=== PATIENT | male | born 1960 | race Caucasian/White ===

== ENCOUNTER 2016-09-17 12:22 | Emergency (ER) | payer BC ==
[2016-09-17] MEDS ORDERED: HYDROmorphone 1 MG/ML 1 ML SYRINGE IM STA ×2 (12:53→13:44)
--- NOTE | 2016-09-17 12:56 | ED ---
General Adult HPI - General Chief complaint: Neck Pain/Injury Stated complaint: Neck/Shoulder Pain Time Seen by Provider: 09/17/16 12:45 Source: patient, family, RN notes reviewed Mode of arrival: ambulatory Limitations: no limitations - History of Present Illness Initial comments: Patient is a pleasant 56-year-old male presenting to the emergency Department with neck and left arm pain. Onset was a week or 2 ago. Patient has discomfort left neck that radiates to the shoulder and down the arm. Patient does have burning sensation. Patient had difficulty lifting a glass earlier however admits it was secondary to pain. No history of chronic neck problems. Patient did see his doctor a couple of days ago. Patient was prescribed Tylenol 3 and Flexeril without improvement of symptoms. Patient did have x- rays that were interpreted by his doctor as no acute process. Patient is scheduled to have MRI. - Related Data Home Medications Medication Instructions Recorded Confirmed Acetaminophen-Codeine 300-30mg 1 tab PO Q6H PRN 09/17/16 09/17/16 [Tylenol #3] Atorvastatin [Lipitor] 10 mg PO HS 09/17/16 09/17/16 Cyclobenzaprine [Flexeril] 5 mg PO TID PRN 09/17/16 09/17/16 Loratadine [Claritin] 10 mg PO DAILY 09/17/16 09/17/16 Timolol 0.5% Ophth Soln [Timoptic 1 drop BOTH EYES DAILY 09/17/16 09/17/16 0.5% Ophth Soln] Previous Rx's Medication Instructions Recorded Hydrocodone/Acetaminophen [[place] 2 each PO Q6HR PRN #20 tab 09/17/16 5-325] Orphenadrine [Norflex] 100 mg PO Q12H #12 tablet.er 09/17/16 Allergies Allergy/AdvReac Type Severity Reaction Status Date / Time aspirin Allergy Anaphylaxis Verified 09/17/16 13:18 ibuprofen [From Motrin] Allergy Anaphylaxis Verified 09/17/16 13:18 Review of Systems ROS Statement: Those systems with pertinent positive or pertinent negative responses have been documented in the HPI. ROS Other: All systems not noted in ROS Statement are negative. Constitutional: Denies: fever Eyes: Denies: eye pain ENT: Denies: ear pain Respiratory: Denies: cough Cardiovascular: Denies: chest pain Endocrine: Denies: fatigue Gastrointestinal: Denies: abdominal pain Genitourinary: Denies: dysuria Musculoskeletal: Reports: other (Neck pain) Skin: Denies: rash Neurological: Denies: headache Past Medical History Past Medical History: Cancer, Hyperlipidemia, Hypertension, Osteoarthritis (OA) Additional Past Medical History / Comment(s): GLAUCOMA,PROSTATE, THROMBOCYTOPENIA History of Any Multi-Drug Resistant Organisms: None Reported Past Surgical History: Orthopedic Surgery Past Psychological History: No Psychological Hx Reported Smoking Status: Former smoker Past Alcohol Use History: Rare Past Drug Use History: None Reported General Exam Limitations: no limitations General appearance: alert, in no apparent distress Head exam: Present: atraumatic Eye exam: Present: normal appearance, PERRL ENT exam: Present: normal oropharynx Neck exam: Present: tenderness (Tenderness left lateral lower neck posteriorly.) Respiratory exam: Present: normal lung sounds bilaterally Cardiovascular Exam: Present: regular rate, normal rhythm Expanded Peripheral pulses: 2+: Radial (L) GI/Abdominal exam: Present: soft. Absent: tenderness Extremities exam: Present: normal inspection Neurological exam: Present: alert, CN II-XII intact Expanded Sensory exam: Upper Extremity Light Touch: Normal Motor strength exam: RUE: 5, LUE: 5 (No weakness with change management lead or extension or flexion of an outstretched arm.) Eye Response: (4) open spontaneously Motor Response: (6) obeys commands Verbal Response: (5) oriented Psychiatric exam: Present: normal affect, normal mood Skin exam: Absent: rash Course Vital Signs 09/17/16 09/17/16 09/17/16 12:25 13:44 14:35 Temperature 98.0 F 97.5 F L 97.7 F Pulse Rate 68 67 60 Respiratory 20 18 18 Rate Blood Pressure 168/88 171/77 185/93 O2 Sat by Pulse 98 95 93 L Oximetry Medical Decision Making - Medical Decision Making Patient reexamined and states discomfort is tolerable at this time. Patient is comfortable with discharge home. Patient will be provided stronger pain medication and recommended close follow-up. Patient is advised to return if symptoms worsen or weakness or loss of sensation. Patient was earlier offered x -rays however states they are not necessary because his doctor just did x-rays. Disposition Clinical Impression: Cervical radiculopathy Disposition: HOME SELF-CARE Condition: Stable Instructions: Cervical Radiculopathy (ED) Additional Instructions: Please follow-up with primary care physician and orthopedics on Sunday. Please have your MRI scheduled. Return for weakness or loss of sensation, uncontrolled pain, worsening symptoms or other concerns. Prescriptions: Hydrocodone/Acetaminophen [[place] 5-325] 2 each PO Q6HR PRN #20 tab PRN Reason: Pain Orphenadrine [Norflex] 100 mg PO Q12H #12 tablet.er Referrals: Jair Hoyt DO [Primary Care Provider] - 1-2 days
[2016-09-17 13:45] VITALS: RESP 18
[2016-09-17 14:36] VITALS: PULSE 60
[2016-09-17 15:03] VITALS: BP 184/84; TEMP 98.6
== END 2016-09-17 15:10 | disposition home or self-care (01) ==
LOC: EC 12:22
DX: M54.12 Radiculopathy, cervical region (principal); E78.5 Hyperlipidemia, unspecified; I10 Essential (primary) hypertension; M19.90 Unspecified osteoarthritis, unspecified site; Z87.891 Personal history of nicotine dependence; Z79.899 Other long term (current) drug therapy; Z88.6 Allergy status to analgesic agent; Z85.9 Personal history of malignant neoplasm, unspecified
CPT/HCPCS: 99283; 96372 ×2; J1170

== ENCOUNTER 2017-04-06 14:27 | Emergency (ER) | payer BC ==
[2017-04-06 14:39] VITALS: TEMP 98.5
[2017-04-06] MEDS ORDERED: HYDROmorphone 1 MG/ML 1 ML SYRINGE IVP STA (15:41)
[2017-04-06] MEDS ORDERED: ONDANSETRON 4 MG/2 ML VIAL IVP STA (15:41)
[2017-04-06] MEDS ORDERED: SODIUM CHLORIDE 0.9% 1,000 ML IV STA (15:41)
--- NOTE | 2017-04-06 15:44 | ED ---
General Adult HPI - General Chief complaint: Headache Stated complaint: Shooting pains in head Time Seen by Provider: 04/06/17 15:16 Source: patient, RN notes reviewed Mode of arrival: ambulatory Limitations: no limitations - History of Present Illness Initial comments: Patient's a 57-year-old male who presents emergency room today with a chief complaint of a headache located to the right side of his head that started approximately 12 hours ago. He does admit that he was driving when this headache started. Patient states it as a "sharp" type pain that comes and goes. He states that has a slight dull ache 1 cm. States it happens every 2-5 minutes and just last for a few seconds at a time. Patient states it is a sharp 10/10 type pain. Patient denies any other complaints or symptoms. Denies ever having similar symptoms in the past. Patient denies any recent fever , chills, shortness of breath, chest pain, back pain, abdominal pain, nausea or vomiting, numbness or tingling, dysuria or hematuria, constipation or diarrhea, visual changes, or any other complaints. - Related Data Home Medications Medication Instructions Recorded Confirmed Atorvastatin [Lipitor] 10 mg PO DAILY 09/17/16 04/06/17 Timolol 0.5% Ophth Soln [Timoptic 1 drop BOTH EYES DAILY 09/17/16 04/06/17 0.5% Ophth Soln] Gabapentin [Neurontin] 300 mg PO TID PRN 04/06/17 04/06/17 Previous Rx's Medication Instructions Recorded Butalb/Acetaminophen/Caffeine 1 - 2 each PO Q4H #20 tab 04/06/17 [Fioricet 50-325-40] Hydrocodone/Acetaminophen [[place] 1 each PO Q6HR PRN #15 tab 04/06/17 5-325] Allergies Allergy/AdvReac Type Severity Reaction Status Date / Time NSAIDS (Non-Steroidal Allergy Anaphylaxis Verified 04/06/17 15:54 Anti-Inflamma Review of Systems ROS Statement: Those systems with pertinent positive or pertinent negative responses have been documented in the HPI. ROS Other: All systems not noted in ROS Statement are negative. Past Medical History Past Medical History: Cancer, Hyperlipidemia, Hypertension, Osteoarthritis (OA) Additional Past Medical History / Comment(s): GLAUCOMA,PROSTATE, THROMBOCYTOPENIA History of Any Multi-Drug Resistant Organisms: None Reported Past Surgical History: Hernia Repair, Orthopedic Surgery, Prostate Surgery Additional Past Surgical History / Comment(s): carpal tunnel Past Psychological History: No Psychological Hx Reported Smoking Status: Former smoker Past Alcohol Use History: Rare Past Drug Use History: None Reported General Exam - General Exam Comments Initial Comments: General: The patient is awake and alert, in no distress, and does not appear acutely ill. Eye: Pupils are equal, round and reactive to light, extra-ocular movements are intact. No nystagmus. There is normal conjunctiva bilaterally. No signs of icterus. Ears, nose, mouth and throat: There are moist mucous membranes and no oral lesions. No tenderness over the right side. No rash. No swelling. Neck: The neck is supple, there is no tenderness or JVD. Cardiovascular: There is a regular rate and rhythm. No murmur, rub or gallop is appreciated. Respiratory: Lungs are clear to auscultation, respirations are non-labored, breath sounds are equal. No wheezes, stridor, rales, or rhonchi. Gastrointestinal: Soft, non-distended, non-tender abdomen without masses or organomegaly noted. There is no rebound or guarding present. No CVA tenderness. Bowel sounds are unremarkable. Musculoskeletal: Normal ROM, no tenderness. Strength 5/5. Sensation intact. Pulses equal bilaterally 2+. Neurological: A&O x 3. CN II-XII intact, There are no obvious motor or sensory deficits. Coordination appears grossly intact. Speech is normal. Skin: Skin is warm and dry and no rashes or lesions are noted. Psychiatric: Cooperative, appropriate mood & affect, normal judgment. Limitations: no limitations Course Vital Signs 04/06/17 04/06/17 14:36 16:48 Temperature 98.5 F Pulse Rate 60 63 Respiratory 20 18 Rate Blood Pressure 159/95 150/81 O2 Sat by Pulse 96 97 Oximetry Medical Decision Making - Medical Decision Making Case discussed in detail with attending physician Dr. Miranda. Patient reexamined at this time shows no signs of distress resting comfortably. Patient resting comfortably. Does admit to improvement after medication given here in the emergency room. Patient's CT and CTA are negative for any acute abnormalities. Patient will be discharged home advised follow-up urologist over the next 2 days. He will be given pain medication to use for her symptoms. Advised to return if any symptoms increase worsen or for any other concerns. - Lab Data Result diagrams: 04/06/17 15:50 04/06/17 15:50 Lab Results 04/06/17 04/06/17 04/06/17 Range/Units 15:50 15:50 15:50 WBC 7.3 (3.8-10.6) k/uL RBC 5.18 (4.30-5.90) m/uL Hgb 16.5 (13.0-17.5) gm/dL Hct 48.0 (39.0-53.0) % MCV 92.6 (80.0-100.0) fL MCH 31.8 (25.0-35.0) pg MCHC 34.4 (31.0-37.0) g/dL RDW 13.9 (11.5-15.5) % Plt Count 226 (150-450) k/uL Neutrophils % 53 % Lymphocytes % 33 % Monocytes % 8 % Eosinophils % 3 % Basophils % 1 % Neutrophils # 3.9 (1.3-7.7) k/uL Lymphocytes # 2.5 (1.0-4.8) k/uL Monocytes # 0.6 (0-1.0) k/uL Eosinophils # 0.2 (0-0.7) k/uL Basophils # 0.1 (0-0.2) k/uL ESR 5 (0-15) mm/hr Sodium 140 (137-145) mmol/L Potassium 4.3 (3.5-5.1) mmol/L Chloride 110 H (98-107) mmol/L Carbon Dioxide 22 (22-30) mmol/L Anion Gap 8 mmol/L BUN 11 (9-20) mg/dL Creatinine 0.80 (0.66-1.25) mg/dL Est GFR (MDRD) Af Amer >60 (>60 ml/min/1.73 sqM) Est GFR (MDRD) Non-Af >60 (>60 ml/min/1.73 sqM) Glucose 90 (74-99) mg/dL Calcium 8.8 (8.4-10.2) mg/dL Total Bilirubin 1.0 (0.2-1.3) mg/dL AST 28 (17-59) U/L ALT 56 (21-72) U/L Alkaline Phosphatase 117 (38-126) U/L Total Protein 6.6 (6.3-8.2) g/dL Albumin 3.8 (3.5-5.0) g/dL Disposition Clinical Impression: Headache, acute Disposition: HOME SELF-CARE Condition: Good Instructions: Acute Headache (ED) Additional Instructions: Please use medication as discussed. Please follow-up with neurology/family doctor in the next 2 days. Please return to emergency room if the symptoms increase or worsen or for any other concerns. Prescriptions: Butalb/Acetaminophen/Caffeine [Fioricet 50-325-40] 1 - 2 each PO Q4H #20 tab Hydrocodone/Acetaminophen [[place] 5-325] 1 each PO Q6HR PRN #15 tab PRN Reason: Pain Referrals: Jair Hoyt DO [Primary Care Provider] - 1-2 days Ingris Lewis MD [STAFF PHYSICIAN] - 1-2 days Time of Disposition: 18:30
[2017-04-06 16:03] LABS: Basophils # (A) 0.1 k/uL (0-0.2); Basophils % (A) 1 %; CH 32.4; CHCM 35.1; Eosinophils # (A) 0.2 k/uL (0-0.7); Eosinophils % (A) 3 %; HDW 2.57; HGB 16.5 gm/dL (13.0-17.5); Luc # (Auto) 0.14; Luc % (Auto) 2; Lymphocytes # (A) 2.5 k/uL (1.0-4.8); Lymphocytes % (A) 33 %; MCH 31.8 pg (25.0-35.0); MCHC 34.4 g/dL (31.0-37.0); MCV 92.6 fL (80.0-100.0); Mean Platelet Volume 8.4; Monocytes # (A) 0.6 k/uL (0-1.0); Monocytes % (A) 8 %; Neutrophils # (A) 3.9 k/uL (1.3-7.7); Neutrophils % (A) 53 %; RBC 5.18 m/uL (4.30-5.90); RDW 13.9 % (11.5-15.5); WBC 7.3 k/uL (3.8-10.6); WBC (Perox) 7.39
[2017-04-06 16:13] LABS: ALT 56 U/L (21-72); AST 28 U/L (17-59); Alkaline Phosphatase 117 U/L (38-126); Anion Gap 8 mmol/L; Blood Urea Nitrogen 11 mg/dL (9-20); Calcium 8.8 mg/dL (8.4-10.2); Carbon Dioxide 22 mmol/L (22-30); Chloride 110 mmol/L (98-107); Glucose 90 mg/dL (74-99); Non-African American GFR(MDRD) >60 (>60 ml/min/1.73 sqM); Potassium 4.3 mmol/L (3.5-5.1); Sodium 140 mmol/L (137-145); Total Protein 6.6 g/dL (6.3-8.2)
--- NOTE | 2017-04-06 16:42 | CT ---
EXAMINATION TYPE: CT brain wo con DATE OF EXAM: 04/06/2017 COMPARISON: NONE HISTORY: [place]HT[place] today. CT DLP: 1052.[address] of the head is obtained. The ventricles, basal cisterns and sulci overlying the conve xities are consistent with the patient's age. The calvarium is intact. Faint periventricular low att enuation noted which is nonspecific. No midline shift. Changes of mild chronic sinusitis noted. IMPRESSION: 1. No evidence of acute hemorrhage or mass effect. Nonspecific periventricular low attenuation. Corre late clinically. Microvascular white matter ischemia most likely etiology. If symptoms persist or the re is continued clinical concern for acute ischemia correlate with MRI.
[2017-04-06] MEDS ORDERED: RX INFO: IV CONTRAST WAS GIVEN 1 EACH MISC MISCELLANE PRN (17:06)
--- NOTE | 2017-04-06 18:05 | CT ---
EXAMINATION TYPE: CT angio head DATE OF EXAM: 04/06/2017 COMPARISON: NONE HISTORY: Headache and hypertension. CT DLP: 1327.00 mGycm Automated exposure control for dose reduction was used. CONTRAST: Performed with IV Contrast, patient injected with 100 mL of Omnipaque 350. FINDINGS: The anterior and posterior arterial circulation is well visualized and has normal appearance. The bartolo ous structures are unremarkable. There are no incidental vascular findings. The intra-axial and extra-axial compartment evaluations are negative. There are no incidental finding s. IMPRESSION: NO ACUTE PROCESS; NO FOCAL FINDINGS.
[2017-04-06 18:41] VITALS: BP 158/82; PULSE 52; RESP 16
== END 2017-04-06 18:41 | disposition home or self-care (01) ==
LOC: EC 14:27
DX: R51 Headache (principal); E78.5 Hyperlipidemia, unspecified; H40.9 Unspecified glaucoma; Z85.9 Personal history of malignant neoplasm, unspecified; Z87.891 Personal history of nicotine dependence; Z79.899 Other long term (current) drug therapy; Z88.6 Allergy status to analgesic agent
CPT/HCPCS: 36415; 80053; 85652; 85025; 70496; 70450; 99284; 96374; 96375; 96361; Q9967; J2405; J1170

== ENCOUNTER 2017-08-16 17:07 | Emergency (ER) | payer BC ==
[2017-08-16] MEDS ORDERED: RX INFO: IV CONTRAST WAS GIVEN 1 EACH MISC MISCELLANE PRN (17:31)
[2017-08-16] MEDS ORDERED: ONDANSETRON 4 MG/2 ML VIAL IVP STA (17:31)
[2017-08-16] MEDS ORDERED: HYDROmorphone 4 MG/ML 1 ML SYRINGE IVP STA (17:31)
[2017-08-16] MEDS ORDERED: SODIUM CHLORIDE 0.9% 1,000 ML IV STA (17:31)
--- NOTE | 2017-08-16 17:34 | ED ---
Abdominal Pain HPI - General Chief Complaint: Abdominal Pain Stated Complaint: Hernia Time Seen by Provider: 08/16/17 17:26 Source: patient, RN notes reviewed Mode of arrival: ambulatory Limitations: no limitations - History of Present Illness Initial Comments: 57-year-old male presents emergency Department chief complaint of abdominal pain , hernia. Patient's had a known hernia for several years states it started after he had prostate surgery. He states he had a robotic prostate surgery states that before and after. Patient denies any nausea vomiting diarrhea constipation. He states he is passing gas abnormal vomits. He does state that over the last 2 days had increased pain and noticed the redness today. Patient went saw his PCP who sent here for further evaluation. He's had no reported fevers or chills. - Related Data Home Medications Medication Instructions Recorded Confirmed Atorvastatin [Lipitor] 10 mg PO DAILY 09/17/16 08/16/17 Timolol 0.5% Ophth Soln [Timoptic 1 drop BOTH EYES DAILY 09/17/16 08/16/17 0.5% Ophth Soln] Gabapentin [Neurontin] 300 mg PO DAILY PRN 04/06/17 08/16/17 Magnesium 200 mg PO DAILY 08/16/17 08/16/17 Previous Rx's Medication Instructions Recorded HYDROcodone/APAP 7.5-325MG [[place] 1 tab PO Q6HR PRN #20 tab 08/16/17 7.5-325] Allergies Allergy/AdvReac Type Severity Reaction Status Date / Time NSAIDS (Non-Steroidal Allergy Anaphylaxis Verified 08/16/17 17:33 Anti-Inflamma Review of Systems ROS Statement: Those systems with pertinent positive or pertinent negative responses have been documented in the HPI. ROS Other: All systems not noted in ROS Statement are negative. Past Medical History Past Medical History: Cancer, Hyperlipidemia, Hypertension, Osteoarthritis (OA) Additional Past Medical History / Comment(s): GLAUCOMA,PROSTATE, THROMBOCYTOPENIA History of Any Multi-Drug Resistant Organisms: None Reported Past Surgical History: Hernia Repair, Orthopedic Surgery, Prostate Surgery Additional Past Surgical History / Comment(s): carpal tunnel Past Psychological History: No Psychological Hx Reported Smoking Status: Former smoker Past Alcohol Use History: Rare Past Drug Use History: None Reported General Exam Limitations: no limitations General appearance: alert, in no apparent distress Neck exam: Present: normal inspection, full ROM. Absent: tenderness, meningismus, lymphadenopathy Respiratory exam: Present: normal lung sounds bilaterally. Absent: respiratory distress, wheezes, rales, rhonchi, stridor Cardiovascular Exam: Present: regular rate, normal rhythm, normal heart sounds. Absent: systolic murmur, diastolic murmur, rubs, gallop, clicks GI/Abdominal exam: Present: soft, tenderness (Periumbilical umbilical tenderness ), normal bowel sounds, hernia (Umbilical hernia with noted erythema, unable to reduce at this time). Absent: distended, guarding, rebound, rigid Back exam: Absent: CVA tenderness (R), CVA tenderness (L) Skin exam: Present: warm, dry, intact, normal color. Absent: rash Course Vital Signs 08/16/17 08/16/17 17:16 19:13 Temperature 99.4 F Pulse Rate 77 60 Respiratory 16 18 Rate Blood Pressure 163/78 146/77 O2 Sat by Pulse 98 97 Oximetry Medical Decision Making - Medical Decision Making 57-year-old male presented for abdominal pain, hernia. Patient was evaluated by me and by Dr. Pride. We attempted to reduce the hernia which is unsuccessful. CT shows fat-containing hernia there is no loops of bowel. Case was discussed with Dr. Perez by Dr. Pride and Dr. Perez recommends patient to be discharged, given pain medication and follow-up in office. He does understand that this was not reduced here. - Lab Data Result diagrams: 08/16/17 17:43 08/16/17 17:43 Lab Results 08/16/17 08/16/17 08/16/17 Range/Units 17:43 17:43 17:43 WBC 8.4 (3.8-10.6) k/uL RBC 5.03 (4.30-5.90) m/uL Hgb 15.5 (13.0-17.5) gm/dL Hct 46.3 (39.0-53.0) % MCV 92.1 (80.0-100.0) fL MCH 30.8 (25.0-35.0) pg MCHC 33.4 (31.0-37.0) g/dL RDW 12.8 (11.5-15.5) % Plt Count 244 (150-450) k/uL Neutrophils % 65 % Lymphocytes % 26 % Monocytes % 5 % Eosinophils % 2 % Basophils % 1 % Neutrophils # 5.5 (1.3-7.7) k/uL Lymphocytes # 2.1 (1.0-4.8) k/uL Monocytes # 0.5 (0-1.0) k/uL Eosinophils # 0.2 (0-0.7) k/uL Basophils # 0.0 (0-0.2) k/uL PT (9.0-12.0) sec INR (<1.2) APTT (22.0-30.0) sec Sodium 141 (137-145) mmol/L Potassium 4.2 (3.5-5.1) mmol/L Chloride 109 H (98-107) mmol/L Carbon Dioxide 24 (22-30) mmol/L Anion Gap 8 mmol/L BUN 11 (9-20) mg/dL Creatinine 0.80 (0.66-1.25) mg/dL Est GFR (MDRD) Af Amer >60 (>60 ml/min/1.73 sqM) Est GFR (MDRD) Non-Af >60 (>60 ml/min/1.73 sqM) Glucose 97 (74-99) mg/dL Plasma Lactic Acid [place] 0.6 L (0.7-2.0) mmol/L Calcium 9.0 (8.4-10.2) mg/dL Total Bilirubin 0.6 (0.2-1.3) mg/dL AST 23 (17-59) U/L ALT 29 (21-72) U/L Alkaline Phosphatase 100 (38-126) U/L Total Protein 6.6 (6.3-8.2) g/dL Albumin 3.8 (3.5-5.0) g/dL Amylase 34 (30-110) U/L Lipase 82 (23-300) U/L Urine Color Urine Appearance (Clear) Urine pH (5.0-8.0) Ur Specific [place] (1.001-1.035) Urine Protein (Negative) Urine Glucose (UA) (Negative) Urine Ketones (Negative) Urine Blood (Negative) Urine Nitrite (Negative) Urine Bilirubin (Negative) Urine Urobilinogen (<2.0) mg/dL Ur Leukocyte Esterase (Negative) Amorphous Sediment (None) /hpf Urine Mucus (None) /hpf 08/16/17 08/16/17 Range/Units 17:43 18:00 WBC (3.8-10.6) k/uL RBC (4.30-5.90) m/uL Hgb (13.0-17.5) gm/dL Hct (39.0-53.0) % MCV (80.0-100.0) fL MCH (25.0-35.0) pg MCHC (31.0-37.0) g/dL RDW (11.5-15.5) % Plt Count (150-450) k/uL Neutrophils % % Lymphocytes % % Monocytes % % Eosinophils % % Basophils % % Neutrophils # (1.3-7.7) k/uL Lymphocytes # (1.0-4.8) k/uL Monocytes # (0-1.0) k/uL Eosinophils # (0-0.7) k/uL Basophils # (0-0.2) k/uL PT 10.1 (9.0-12.0) sec INR 1.0 (<1.2) APTT 24.4 (22.0-30.0) sec Sodium (137-145) mmol/L Potassium (3.5-5.1) mmol/L Chloride (98-107) mmol/L Carbon Dioxide (22-30) mmol/L Anion Gap mmol/L BUN (9-20) mg/dL Creatinine (0.66-1.25) mg/dL Est GFR (MDRD) Af Amer (>60 ml/min/1.73 sqM) Est GFR (MDRD) Non-Af (>60 ml/min/1.73 sqM) Glucose (74-99) mg/dL Plasma Lactic Acid [place] (0.7-2.0) mmol/L Calcium (8.4-10.2) mg/dL Total Bilirubin (0.2-1.3) mg/dL AST (17-59) U/L ALT (21-72) U/L Alkaline Phosphatase (38-126) U/L Total Protein (6.3-8.2) g/dL Albumin (3.5-5.0) g/dL Amylase (30-110) U/L Lipase (23-300) U/L Urine Color Yellow Urine Appearance Cloudy (Clear) Urine pH 7.5 (5.0-8.0) Ur Specific [place] 1.017 (1.001-1.035) Urine Protein Trace H (Negative) Urine Glucose (UA) Negative (Negative) Urine Ketones Negative (Negative) Urine Blood Negative (Negative) Urine Nitrite Negative (Negative) Urine Bilirubin Negative (Negative) Urine Urobilinogen 2.0 (<2.0) mg/dL Ur Leukocyte Esterase Negative (Negative) Amorphous Sediment Rare H (None) /hpf Urine Mucus Rare H (None) /hpf Disposition Clinical Impression: Umbilical hernia Disposition: HOME SELF-CARE Condition: Stable Instructions: Umbilical Hernia (ED) Additional Instructions: Please return to the Emergency Department if symptoms worsen or any other concerns. Prescriptions: HYDROcodone/APAP 7.5-325MG [[place] 7.5-325] 1 tab PO Q6HR PRN #20 tab PRN Reason: Pain Referrals: Jair Hoyt DO [Primary Care Provider] - 1-2 days Lex Perez MD [STAFF PHYSICIAN] - 1-2 days Time of Disposition: 20:10
[2017-08-16 18:04] LABS: Basophils % (A) 1 %; Eosinophils # (A) 0.2 k/uL (0-0.7); Eosinophils % (A) 2 %; HCT 46.3 % (39.0-53.0); HGB 15.5 gm/dL (13.0-17.5); Lymphocytes # (A) 2.1 k/uL (1.0-4.8); Lymphocytes % (A) 26 %; MCH 30.8 pg (25.0-35.0); MCHC 33.4 g/dL (31.0-37.0); MCV 92.1 fL (80.0-100.0); Mean Platelet Volume 8.3; Monocytes # (A) 0.5 k/uL (0-1.0); Monocytes % (A) 5 %; Neutrophils # (A) 5.5 k/uL (1.3-7.7); Neutrophils % (A) 65 %; Platelet Count 244 k/uL (150-450); RBC 5.03 m/uL (4.30-5.90); RDW 12.8 % (11.5-15.5); WBC 8.4 k/uL (3.8-10.6)
[2017-08-16 18:12] LABS: Amorphous Sediment,Urine Rare /hpf; Appearance,Urine Cloudy (Clear); Bilirubin,Urine Negative (Negative); Blood,Urine Negative (Negative); Color,Urine Yellow; Glucose,Urine (UA) Negative (Negative); Ketones,Urine Negative (Negative); Leukocyte Esterase,Urine Negative (Negative); Mucus,Urine Rare /hpf; Nitrite,Urine Negative (Negative); PH, Urine 7.5 (5.0-8.0); Protein,Urine Trace (Negative); Specific Gravity,Urine 1.017 (1.001-1.035)
[2017-08-16 18:13] LABS: Albumin 3.8 g/dL (3.5-5.0); Amylase 34 U/L (30-110); Chloride 109 mmol/L (98-107); Glucose 97 mg/dL (74-99); Partial Thromboplastin Time 24.4 sec (22.0-30.0); Prothrombin Time 10.1 sec (9.0-12.0); Total Protein 6.6 g/dL (6.3-8.2)
[2017-08-16 18:14] LABS: ALT 29 U/L (21-72); AST 23 U/L (17-59); Alkaline Phosphatase 100 U/L (38-126); Anion Gap 8 mmol/L; Blood Urea Nitrogen 11 mg/dL (9-20); Carbon Dioxide 24 mmol/L (22-30); Lipase 82 U/L (23-300); Potassium 4.2 mmol/L (3.5-5.1); Sodium 141 mmol/L (137-145); Total Bilirubin 0.6 mg/dL (0.2-1.3)
--- NOTE | 2017-08-16 19:05 | CT ---
EXAMINATION TYPE: CT abdomen pelvis w con DATE OF EXAM: 08/16/2017 COMPARISON: NONE HISTORY: Redness and inflammation around umbilical hernia. CT DLP: 1725.4 mGycm Automated exposure control for dose reduction was used. TECHNIQUE: Helical acquisition of images was performed from the lung bases through the pelvis. CONTRAST: Performed without Oral Contrast and with IV Contrast, patient injected with 100 mL of Omnipaque 300. FINDINGS: Lung bases are clear of consolidation. There is no pleural effusion. Heart size is normal. Liver spleen pancreas gallbladder appear normal. Bile ducts are not dilated. There is no adrenal mass. The kidneys show satisfactory contrast opacification. There is no hydroneph rosis. Kidneys have normal size. There is no retroperitoneal adenopathy. There is no ascites. I see n o intestinal wall thickening. There are no dilated loops. Bladder distends smoothly. There is no sign of a pelvic mass. There is umbilical hernia that contains omental fat. There is a 3 cm area of fat d ensity umbilical hernia that has some stranding consistent with inflammatory reaction. Appendix appea rs normal. I see no bony destructive process. There is L5 spondylolysis with a mild first-degree L5-S 1 spondylolisthesis. There is no compression fracture. IMPRESSION: UMBILICAL HERNIA CONTAINS OMENTAL FAT AND SHOW SOME INFLAMMATORY CHANGES. NO ABSCESS FLUID SEEN. SPONDYLOLYSIS OF L5 WITH FIRST-DEGREE L5-S1 SPONDYLOLISTHESIS.
[2017-08-16] MEDS ORDERED: ACET/COD 300 MG/30 MG STARTER PACK 6 TAB BTL PO STA (20:14)
[2017-08-16 20:30] VITALS: BP 141/83; PULSE 68; RESP 16; TEMP 98.5
== END 2017-08-16 20:33 | disposition home or self-care (01) ==
LOC: EC 17:07
DX: K42.9 Umbilical hernia without obstruction or gangrene (principal); R14.3 Flatulence; E78.5 Hyperlipidemia, unspecified; Z87.891 Personal history of nicotine dependence; Z79.899 Other long term (current) drug therapy; Z88.6 Allergy status to analgesic agent; Z85.46 Personal history of malignant neoplasm of prostate; Z86.69 Personal history of other diseases of the nervous system and sense organs; Z98.890 Other specified postprocedural states
CPT/HCPCS: 36415; 80053; 82150; 83605; 83690; 85025; 85610; 85730; 81001; 87040; 74177; 99284; 96374; 96375; 96361 ×3; J2405; Q9967; J1170

== ENCOUNTER 2019-03-23 11:23 | Emergency (ER) | payer BC ==
[2019-03-23 11:30] VITALS: RESP 18
[2019-03-23] MEDS ORDERED: METHOCARBAMOL 500 MG TAB PO STA (11:46)
[2019-03-23] MEDS ORDERED: HYDROcodone/APAP 5-325MG 1 EACH TAB PO STA (11:46)
--- NOTE | 2019-03-23 11:48 | ED ---
Neck Injury/Pain HPI - General Chief Complaint: Neck Pain/Injury Stated Complaint: Neck/back/arm pain Time Seen by Provider: 03/23/19 11:36 Mode of arrival: ambulatory Limitations: no limitations - History of Present Illness Initial Comments: Patient complains of neck pain radiating down the right upper [place]. He has no weakness in the arms. He has no chest or belly or back pain. He has no nausea or vomiting. Patient states that he was working under his truck replacing a hose. After the work he noticed the pain. He has no headache. He has no nausea or vomiting or diaphoresis. Has no weakness. He has no trouble speaking. He has no change in vision or hearing. He has no lightheadedness or dizziness. - Related Data Home Medications Medication Instructions Recorded Confirmed Timolol 0.5% Ophth Soln [Timoptic 1 drop BOTH EYES DAILY 09/17/16 03/23/19 0.5% Ophth Soln] Magnesium 200 mg PO DAILY 08/16/17 03/23/19 Rosuvastatin Calcium [Crestor] 5 mg PO DAILY 03/23/19 03/23/19 Previous Rx's Medication Instructions Recorded Methocarbamol [Robaxin-750] 1,500 mg PO TID #30 tablet 03/23/19 Allergies Allergy/AdvReac Type Severity Reaction Status Date / Time NSAIDS (Non-Steroidal Allergy Anaphylaxis Verified 03/23/19 12:26 Anti-Inflamma Review of Systems ROS Statement: Those systems with pertinent positive or pertinent negative responses have been documented in the HPI. ROS Other: All systems not noted in ROS Statement are negative. Past Medical History Past Medical History: Cancer, Hyperlipidemia, Hypertension, Osteoarthritis (OA) Additional Past Medical History / Comment(s): GLAUCOMA,PROSTATE, THROMBOCYTOPENIA History of Any Multi-Drug Resistant Organisms: None Reported Past Surgical History: Hernia Repair, Orthopedic Surgery, Prostate Surgery Additional Past Surgical History / Comment(s): carpal tunnel knee ankle Past Psychological History: No Psychological Hx Reported Smoking Status: Current some day smoker Past Alcohol Use History: Rare Past Drug Use History: None Reported General Exam Limitations: no limitations General appearance: alert, in no apparent distress Head exam: Present: atraumatic, normocephalic, normal inspection Eye exam: Present: normal appearance, PERRL, EOMI. Absent: scleral icterus, conjunctival injection, periorbital swelling ENT exam: Present: normal exam, mucous membranes moist Neck exam: Present: normal inspection. Absent: tenderness, meningismus, lymphadenopathy Respiratory exam: Present: normal lung sounds bilaterally. Absent: respiratory distress, wheezes, rales, rhonchi, stridor Cardiovascular Exam: Present: regular rate, normal rhythm, normal heart sounds. Absent: systolic murmur, diastolic murmur, rubs, gallop, clicks GI/Abdominal exam: Present: soft, normal bowel sounds. Absent: distended, tenderness, guarding, rebound, rigid Extremities exam: Present: normal inspection, full ROM, normal capillary refill. Absent: tenderness, pedal edema, joint swelling, calf tenderness Back exam: Present: normal inspection Neurological exam: Present: alert, oriented X3, CN II-XII intact Psychiatric exam: Present: normal affect, normal mood Skin exam: Present: warm, dry, intact, normal color. Absent: rash Course Vital Signs 03/23/19 11:27 Temperature 98.5 F Pulse Rate 76 Respiratory 18 Rate Blood Pressure 170/81 O2 Sat by Pulse 97 Oximetry Medical Decision Making - Medical Decision Making Patient presents with symptoms of cervical radiculopathy. His imaging is all negative. He has no neurological deficits on exam. He is feeling better on reevaluation. She is stable for discharge. Disposition Clinical Impression: Cervical radiculopathy Disposition: HOME SELF-CARE Condition: Good Instructions (If sedation given, give patient instructions): Cervical Strain (ED) Prescriptions: Methocarbamol [Robaxin-750] 1,500 mg PO TID #30 tablet Is patient prescribed a controlled substance at d/c from ED?: No Referrals: Jair Hoyt DO [Primary Care Provider] - 1-2 days
--- NOTE | 2019-03-23 12:52 | CT ---
EXAMINATION TYPE: CT brain cameron boss con DATE OF EXAM: 03/23/2019 COMPARISON: 04/06/2017 HISTORY: Neck, back, arm pain. CT DLP: 1406.3 mGycm. Automated Exposure Control for Dose Reduction was Utilized. TECHNIQUE: CT scan of the head and cervical spine are performed without contrast. FINDINGS: There is no acute intracranial hemorrhage, mass effect, or midline shift identified. Few foci of hypoattenuation in the and periventricular white matter are unchanged from the prior and most commonly on the basis of microangiopathy. The ventricles and sulci are within normal limits in size. Mild mucosal thickening is seen within the ethmoid sinuses. The globes are intact and the remaining visualized sinuses are clear. Tiara bullosa is incidentally noted on the left. Incidental tonsiliths . Cervical spine is visualized in its entirety from C1 through upper thoracic levels and demonstrates s atisfactory alignment without evidence of acute fracture or dislocation. Prevertebral soft tissue ap pears within normal limits. The C1-C2 articulation is unremarkable. There is reversal usual cervica l lordosis, that may be on the basis of muscular sprain/spasm or patient positioning. Multilevel dege nerative disc disease is seen as uncovertebral hypertrophy and facet arthropathy with intervertebral disc space narrowing and small anterior osteophytes. Evaluation of the spinal canal is limited on CT however no spinal canal stenosis is seen. Prominent uncovertebral hypertrophy on the right at C3-C4 creates moderate right neural foraminal ruddy rowing. There is also mild left neural foraminal narrowing. At C4-C5 there is moderate bilateral neur al foraminal narrowing. At C5-C6 there is moderate left and mild right neural foraminal narrowing. At C6-C7 there is mild bilateral neural foraminal narrowing. Findings could be more accurately assessed with MRI. IMPRESSION: 1. There is no acute fracture or dislocation evident in the cervical spine. 2. No acute intracranial hemorrhage, mass effect, or midline shift is seen. 3. Reversal usual cervical lordosis that may be on the basis of scarring/asthma patient positioning. 4. Mild to moderate multilevel degenerative disc disease of the cervical spine as detailed above.
[2019-03-23] MEDS ORDERED: HYDROmorphone 0.5 MG/0.5 ML SYRINGE IM STA (13:09)
[2019-03-23 13:26] VITALS: BP 146/89; PULSE 59; TEMP 98.1
== END 2019-03-23 13:41 | disposition home or self-care (01) ==
LOC: EC 11:23
DX: M54.12 Radiculopathy, cervical region (principal); E78.5 Hyperlipidemia, unspecified; H40.9 Unspecified glaucoma; I10 Essential (primary) hypertension; F17.200 Nicotine dependence, unspecified, uncomplicated; Z79.899 Other long term (current) drug therapy; Z88.6 Allergy status to analgesic agent; Z85.9 Personal history of malignant neoplasm, unspecified
CPT/HCPCS: 72125; 70450; 99283; 96372; J1170

== ENCOUNTER 2020-06-27 19:31 | Emergency (ER) | payer BC ==
[2020-06-27 19:36] VITALS: BP 187/70; PULSE 71; RESP 18; TEMP 99
[2020-06-27] MEDS ORDERED: HYDROcodone/APAP 5-325MG 1 EACH TAB PO STA (19:44)
[2020-06-27 20:00] LABS: Appearance,Urine Clear (Clear); Bilirubin,Urine Negative (Negative); Blood,Urine Negative (Negative); Color,Urine Yellow; Glucose,Urine (UA) Negative (Negative); Ketones,Urine Negative (Negative); Leukocyte Esterase,Urine Negative (Negative); Nitrite,Urine Negative (Negative); Protein,Urine Negative (Negative); Urobilinogen,Urine <2.0 mg/dL (<2.0)
--- NOTE | 2020-06-27 21:14 | US ---
EXAMINATION TYPE: US scrotum with doppler. Grayscale and color Doppler Duplex imaging performed of t andrey scrotum. DATE OF EXAM: 06/27/2020 COMPARISON: NONE CLINICAL HISTORY: pain. Right testicular pain x 1 day EXAM MEASUREMENTS: TESTICLES: Right Testicle: 3.8 x 2.1 x 3.0 cm Left Testicle: 3.8 x 2.0 x 2.4 cm EPIDIDYMIS HEAD: Right Epididymis: 0.8 x 1.3 x 1.1 cm Left Epididymis: 0.9 x 1.0 x 1.0 cm Doppler performed to assess for testicular vascularity; good bilateral color flow and waveforms are s een. There is no evidence of testicular torsion. Presence of hydroceles: Moderate simple-appearing bilateral hydroceles. Presence of varicoceles: no Left epididymis: 0.3cm cyst 0.5cm echogenic focus seen inferior to left testicle IMPRESSION: Moderate bilateral hydroceles. No evidence of testicular torsion. Nonspecific small echogenic focus along the scrotal inferior to the left testicle, may represent tianna gn calcification versus debris. No suspicious features.
[2020-06-27] MEDS ORDERED: ACET/COD 300 MG/30 MG STARTER PACK 6 TAB BTL PO STA (22:21)
--- NOTE | 2020-06-27 22:21 | ED ---
General Adult HPI - General Chief complaint: Urogenital Stated complaint: Swollen Testicle Time Seen by Provider: 06/27/20 19:37 Source: patient, RN notes reviewed, old records reviewed Mode of arrival: ambulatory Limitations: no limitations - History of Present Illness Initial comments: 60-year-old male patient to ED for evaluation of right testicular pain. Pain began this morning. Described as dull and achy. No dysuria no concern for STI. Denies any other complaints. Systemic: Pt denies fatigue, fever/chills, rash. Pt denies weakness, night swea ts, weight loss. Neuro: Pt denies headache, visual disturbances, syncope or pre-syncope. HEENT: Pt denies ocular discharge or irritation, otalgia, rhinorrhea, pharyngitis or notable lymphadenopathy. Cardiopulmonary: Pt denies chest pain, SOB, heart palpitations, dyspnea on exertion. Abdominal/GI: Pt denies abdominal pain, n/v/d. : Pt denies dysuria, burning w/ urination, frequency/urgency. Denies new onset urinary or bowel incontinence. MSK: Pt denies myalgia, loss of strength or function in extremities. Neuro: Pt denies new onset weakness, paresthesias. - Related Data Home Medications Medication Instructions Recorded Confirmed Timolol 0.5% Ophth Soln [Timoptic 1 drop BOTH EYES DAILY 09/17/16 03/23/19 0.5% Ophth Soln] Magnesium 200 mg PO DAILY 08/16/17 03/23/19 Rosuvastatin Calcium [Crestor] 5 mg PO DAILY 03/23/19 03/23/19 Previous Rx's Medication Instructions Recorded Methocarbamol [Robaxin-750] 1,500 mg PO TID #30 tablet 03/23/19 Allergies Allergy/AdvReac Type Severity Reaction Status Date / Time NSAIDS (Non-Steroidal Allergy Anaphylaxis Verified 03/23/19 12:26 Anti-Inflamma Review of Systems ROS Statement: Those systems with pertinent positive or pertinent negative responses have been documented in the HPI. ROS Other: All systems not noted in ROS Statement are negative. Past Medical History Past Medical History: Cancer, Hyperlipidemia, Hypertension, Osteoarthritis (OA) Additional Past Medical History / Comment(s): GLAUCOMA,PROSTATE, THROMBOCYTOPENIA History of Any Multi-Drug Resistant Organisms: None Reported Past Surgical History: Hernia Repair, Orthopedic Surgery, Prostate Surgery Additional Past Surgical History / Comment(s): carpal tunnel knee ankle Past Psychological History: No Psychological Hx Reported Smoking Status: Current every day smoker Past Alcohol Use History: Rare Past Drug Use History: None Reported General Exam - General Exam Comments Initial Comments: Constitutional: NAD, AOX3, Pt has pleasant affect. HEENT: NC/AT, trachea midline, neck supple, no lymphadenopathy. External ears appear normal, without discharge. Mucous membranes moist. Eyes PERRLA, EOM intact. There is no scleral icterus. No pallor noted. Cardiopulmonary: RRR, no murmurs, rubs or gallops, no JVD noted. Lungs CTAB in anterior and posterior poon. No peripheral edema. Abdominal exam: Abdomen soft and non-distended. Abdomen non-tender to palpation in all 4 quadrants. Bowel sounds active in LLQ. No hepatosplenomegaly. No ecchymosis Neuro: CN II-XII grossly intact. No nuchal rigidity. No raccon eyes, no sweet sign, no hemotympanum. No cervical spinal tenderness. MSK: No posterior calf tenderness bilaterally, homans sign negative bilaterally. Posterior tibialis and radial pulse +2 bilaterally. Sensation intact in upper and lower extremities. Full active ROM in upper and lower extremities, 5/5 stregnth. : Mild tenderness to the right testicle. No blue dot sign, creamesteric reflex intact. No skin changes, no hernia or mass noted. Limitations: no limitations Course Vital Signs 06/27/20 19:33 Temperature 99.0 F Pulse Rate 71 Respiratory 18 Rate Blood Pressure 187/70 O2 Sat by Pulse 98 Oximetry Medical Decision Making - Medical Decision Making 60-year-old male patient to ED for evaluation of right testicular pain. Pain began this morning. Described as dull and achy. No dysuria no concern for STI. Denies any other complaints. Pt VSS, afebrile. Physical exam displayed: Mild tenderness to the right testicle. No blue dot sign, creamesteric reflex intact. No skin changes, no hernia or mass noted. Ultrasound displayed moderate bilateral hydroceles, no evidence of testicular torsion. Patient pain has resolved, he will be discharged with outpatient follow up and return precautions. Case discussed with Dr. Rose. - Lab Data Lab Results 06/27/20 Range/Units 19:49 Urine Color Yellow Urine Appearance Clear (Clear) Urine pH 6.0 (5.0-8.0) Ur Specific [place] 1.020 (1.001-1.035) Urine Protein Negative (Negative) Urine Glucose (UA) Negative (Negative) Urine Ketones Negative (Negative) Urine Blood Negative (Negative) Urine Nitrite Negative (Negative) Urine Bilirubin Negative (Negative) Urine Urobilinogen <2.0 (<2.0) mg/dL Ur Leukocyte Esterase Negative (Negative) Disposition Clinical Impression: Testicular pain, right Disposition: HOME SELF-CARE Condition: Stable Instructions (If sedation given, give patient instructions): Testicle Pain (ED) Additional Instructions: Follow up with PCP and urologist tomorrow. Return to ED with any worsening symptoms. Is patient prescribed a controlled substance at d/c from ED?: No Referrals: Jair Hoyt DO [Primary Care Provider] - 1-2 days Joseph Londono MD [STAFF PHYSICIAN] - 1-2 days
[2020-06-29 15:17] LABS: C. trachomatis,PCR Negative (Neg,Equiv); Chlamydia trachomatis Source Urine
[2020-06-29 15:26] LABS: N. gonorrhoeae,PCR Negative (Neg,Equiv); Neisseria Source Urine
== END 2020-06-27 22:31 | disposition home or self-care (01) ==
LOC: EC 19:31
DX: N50.811 Right testicular pain (principal); N43.3 Hydrocele, unspecified; E78.5 Hyperlipidemia, unspecified; F17.200 Nicotine dependence, unspecified, uncomplicated; Z79.899 Other long term (current) drug therapy; Z88.6 Allergy status to analgesic agent; Z83.511 Family history of glaucoma
CPT/HCPCS: 76870; 81003; 87491; 87591; 93975; 99284

== ENCOUNTER 2022-05-02 14:02 | Emergency (ER) | payer BC ==
[2022-05-02 14:16] VITALS: BP 185/97; PULSE 78; RESP 16; TEMP 97.6
[2022-05-02] MEDS ORDERED: LIDOCAINE/EPINEPHR/TETRACAINE 5 ML BOTTLE TOPICAL ONE (14:18)
--- NOTE | 2022-05-02 15:04 | CT ---
EXAMINATION TYPE: CT brain wo con DATE OF EXAM: 05/02/2022 COMPARISON: Prior CT brain 03/23/2019 HISTORY: head injury, trauma and pain CT DLP: 1166.4 mGycm Automated exposure control for dose reduction was used. Helical imaging through the brain. FINDINGS: There are air-fluid levels in the bilateral maxillary sinuses, inflammatory change also extensive wit hin the ethmoid air cells and frontal sinus, also present within the sphenoid sinus. Cortical atrophy is present within the brain. Periventricular white matter shows patchy low attenuation. There is no hemorrhage or hydrocephalus. IMPRESSION: PANSINUSITIS. NO ACUTE BRAIN ABNORMALITY. AGE-RELATED CHANGES OF ATROPHY AND PROBABLE CHRONIC SMALL V ESSEL ISCHEMIA
[2022-05-02] MEDS ORDERED: DIPH,PERTUS(ACELL)TETVAC-LF 0.5 ML VIAL IM ONE (15:15)
--- NOTE | 2022-05-02 16:08 | ED ---
General Adult HPI - General Chief complaint: Wound/Laceration Stated complaint: head injury Time Seen by Provider: 05/02/22 14:13 Source: patient, RN notes reviewed, old records reviewed Mode of arrival: ambulatory Limitations: no limitations - History of Present Illness Initial comments: This is a 62-year-old male who presents emergency Department with a laceration to his forehead. Patient states he was pulling on a piece of pipe and it let go and he hit himself in the forehead. Patient states he does have a headache per patient denies any neck pain. Patient denies any numbness weakness. Patient denies any blood thinners. Patient denies any other injury at this time. Patient states he does not know when his last tetanus was. - Related Data Home Medications Medication Instructions Recorded Confirmed Timolol 0.5% Ophth Soln [Timoptic 1 drop BOTH EYES DAILY 09/17/16 03/23/19 0.5% Ophth Soln] Magnesium 200 mg PO DAILY 08/16/17 03/23/19 Rosuvastatin Calcium [Crestor] 5 mg PO DAILY 03/23/19 03/23/19 Previous Rx's Medication Instructions Recorded methocarbamoL [Robaxin-750] 1,500 mg PO TID #30 tablet 03/23/19 Allergies Allergy/AdvReac Type Severity Reaction Status Date / Time NSAIDS (Non-Steroidal Allergy Anaphylaxis Verified 03/23/19 12:26 Anti-Inflamma Review of Systems ROS Statement: Those systems with pertinent positive or pertinent negative responses have been documented in the HPI. ROS Other: All systems not noted in ROS Statement are negative. Past Medical History Past Medical History: Cancer, Hyperlipidemia, Hypertension, Osteoarthritis (OA) Additional Past Medical History / Comment(s): GLAUCOMA,PROSTATE, THROMBOCYTOPENIA History of Any Multi-Drug Resistant Organisms: None Reported Past Surgical History: Hernia Repair, Orthopedic Surgery, Prostate Surgery Additional Past Surgical History / Comment(s): carpal tunnel knee ankle Past Psychological History: No Psychological Hx Reported Smoking Status: Current every day smoker Past Alcohol Use History: Rare Past Drug Use History: None Reported General Exam - General Exam Comments Initial Comments: GENERAL Patient is well-developed and well-nourished. Patient is in mild distress. EYES Patient's pupils are equal and round. Extraocular motion is intact SKIN Patient has 3 cm on the forehead NEURO The patient is alert and oriented 3 PYSCH Patient has normal interpersonal interactions. MUSCULOSKELETAL All 4 times and full range of motion Limitations: no limitations Course Vital Signs 05/02/22 14:13 Temperature 97.6 F Pulse Rate 78 Respiratory 16 Rate Blood Pressure 185/97 O2 Sat by Pulse 99 Oximetry Procedures - Laceration Laceration #1 Consent Obtained: verbal consent Indication: laceration Site: face (Foreh), other Description: irregular Depth: simple, single layer Anesthetic Used: lidocaine 1% Anesthesia Technique: local infiltration Pre-repair: wound explored Size of Sutures: 5-0 Technique: simple, interrupted Disposition Clinical Impression: Laceration Disposition: HOME SELF-CARE Condition: Good Instructions (If sedation given, give patient instructions): Laceration (ED), Head Injury (ED) Additional Instructions: Patient should have some sutures removed in 5 days Is patient prescribed a controlled substance at d/c from ED?: No Referrals: Jair Hoyt DO [Primary Care Provider] - 1-2 days Time of Disposition: 16:07
== END 2022-05-02 16:29 | disposition home or self-care (01) ==
LOC: EC 14:02
DX: S01.81XA Laceration without foreign body of other part of head, initial encounter (principal); I10 Essential (primary) hypertension; E78.5 Hyperlipidemia, unspecified; M19.90 Unspecified osteoarthritis, unspecified site; Z88.6 Allergy status to analgesic agent; Z79.899 Other long term (current) drug therapy; W26.8XXA Contact with other sharp object(s), not elsewhere classified, initial encounter; Z23 Encounter for immunization
CPT/HCPCS: 12013; 70450; 90471; 90715; 99283

== ENCOUNTER 2023-06-28 00:57 | Emergency (ER) | payer BC, MEDICARE ==
[2023-06-28] MEDS ORDERED: SODIUM CHLORIDE 0.9% 1,000 ML IV ONE (01:04)
[2023-06-28] MEDS ORDERED: MECLIZINE 12.5 MG TAB PO STA (01:05)
--- NOTE | 2023-06-28 01:08 | ED ---
General Adult HPI - General Stated complaint: Dizziness Time Seen by Provider: 06/28/23 00:59 Source: patient, EMS, RN notes reviewed, old records reviewed Mode of arrival: EMS Limitations: no limitations - History of Present Illness Initial comments: 63 yo male presenting for evaluation of dizziness, room spinning sensation. This began about 4 hours prior to arrival. No associated focal numbness or weakness. No prior history of vertigo or CVA. Patient denies chest pain. Patient states that the symptoms were associated with position changes and vomiting. - Related Data Home Medications Medication Instructions Recorded Confirmed Timolol 0.5% Ophth Soln [Timoptic 1 drop BOTH EYES DAILY 09/17/16 03/23/19 0.5% Ophth Soln] Magnesium 200 mg PO DAILY 08/16/17 03/23/19 Rosuvastatin Calcium [Crestor] 5 mg PO DAILY 03/23/19 03/23/19 Previous Rx's Medication Instructions Recorded methocarbamoL [Robaxin-750] 1,500 mg PO TID #30 tablet 03/23/19 Meclizine [Antivert] 25 mg PO TID PRN #30 tab 06/28/23 Allergies Allergy/AdvReac Type Severity Reaction Status Date / Time NSAIDS (Non-Steroidal Allergy Anaphylaxis Verified 03/23/19 12:26 Anti-Inflamma Review of Systems ROS Statement: Those systems with pertinent positive or pertinent negative responses have been documented in the HPI. ROS Other: All systems not noted in ROS Statement are negative. Past Medical History Past Medical History: Cancer, Hyperlipidemia, Hypertension, Osteoarthritis (OA) Additional Past Medical History / Comment(s): GLAUCOMA,PROSTATE, TH ROMBOCYTOPENIA History of Any Multi-Drug Resistant Organisms: None Reported Past Surgical History: Hernia Repair, Orthopedic Surgery, Prostate Surgery Additional Past Surgical History / Comment(s): carpal tunnel knee ankle Past Psychological History: No Psychological Hx Reported Smoking Status: Current every day smoker Past Alcohol Use History: Rare Past Drug Use History: None Reported General Exam General appearance: alert, in no apparent distress Head exam: Present: atraumatic, normocephalic Eye exam: Present: normal appearance, PERRL ENT exam: Present: normal exam, other (No mastoid erythema or tenderness) Neck exam: Present: normal inspection Respiratory exam: Present: normal lung sounds bilaterally. Absent: respiratory distress, wheezes Cardiovascular Exam: Present: regular rate, normal rhythm GI/Abdominal exam: Present: soft. Absent: distended, tenderness Extremities exam: Present: normal inspection, normal capillary refill Neurological exam: Present: alert, oriented X3, CN II-XII intact, other (No ataxia). Absent: motor sensory deficit Skin exam: Present: warm, dry, intact Course Vital Signs 06/28/23 00:59 Temperature 97.8 F Pulse Rate 69 Respiratory 18 Rate Blood Pressure 170/96 O2 Sat by Pulse 100 Oximetry - Reevaluation(s) Reevaluation #1: 06/28/23 04:16 Patient reevaluated on multiple occasions, symptoms significantly improved. No vomiting. No focal numbness or weakness. Blood pressure normalizes without antihypertensive medication. Medical Decision Making - Medical Decision Making Was pt. sent in by a medical professional or institution (, PA, ENVIRONMENTAL MANAGEMENT SPECIALIST, urgent care, hospital, or [facility]...) When possible be specific @ -No Did you speak to anyone other than the patient for history (EMS, parent, family, police, friend...)? What history was obtained from this source @ -No Did you review nursing and triage notes (agree or disagree)? Why? @ -I reviewed and agree with nursing and triage notes Were old charts reviewed (outside hosp., previous admission, EMS record, old EKG, old radiological studies, urgent care reports/EKG's, [facility] records)? Report findings @ -No old charts were reviewed Differential Diagnosis (chest pain, altered mental status, abdominal pain women, abdominal pain men, vaginal bleeding, weakness, fever, dyspnea, syncope, headache, dizziness, GI bleed, back pain, seizure, CVA, palpatations, mental health, musculoskeletal)? @ Differential Dizziness: Benign paroxysmal positional Vertigo, Menieres disease, otitis media, acoustic neuroma, vertebrobasilar insufficiency, cerebellar stroke, encephalitis, hypovolemic, arrhythmia, coronary artery syndrome, anemia, this is not meant to be an all-inclusive list EKG interpreted by me (3pts min.). @ Sinus bradycardia rate of 54 [place] interval 147, QRS duration 85, QTC 410 X-rays interpreted by me (1pt min.). @ -None done CT interpreted by me (1pt min.). @ -CT brain negative for intracranial hemorrhage or mass effect. There is mastoid effusion interpreted by the radiologist which does not represent an acute mastoiditis on exam. U/S interpreted by me (1pt. min.). @ -None done What testing was considered but not performed or refused? (CT, X-rays, U/S, labs)? Why? @ -None What meds were considered but not given or refused? Why? @ -None Did you discuss the management of the patient with other professionals (professionals i.e. Dr., PA, ENVIRONMENTAL MANAGEMENT SPECIALIST, lab, RT, psych nurse, social service technician, supply teacher, teacher, commanding officer garage, pillowcase cleaner)? Give summary @ -No Was smoking cessation discussed for >3mins.? @ -No Was critical care preformed (if so, how long)? @ -No Were there social determinants of health that impacted care today? How? (Homelessness, low income, unemployed, alcoholism, drug addiction, tra nsportation, low edu. Level, literacy, decrease access to med. care, fpc, rehab)? @ -No Was there de-escalation of care discussed even if they declined (Discuss DNR or withdrawal of care, Hospice)? DNR status @ -No What co-morbidities impacted this encounter? (DM, HTN, Smoking, COPD, CAD, Cancer, CVA, ARF, Chemo, Hep., AIDS, mental health diagnosis, sleep apnea, morbid obesity)? @ -None Was patient admitted / discharged? Hospital course, mention meds given and route, prescriptions, significant lab abnormalities, going to OR and other pertinent info. @ -63-year-old male with vertigo symptoms, room spinning sensation. No focal numbness or weakness. Head CT is negative for intracranial hemorrhage or mass effect. Patient has normal CBC, normal CMP. He is in sinus bradycardia. After initial treatment with fluids and meclizine as well as Zofran given by paramedics. The patient does feel significantly better. He will monitor symptoms closely at home and return with any worsening or changing concerns. Undiagnosed new problem with uncertain prognosis? @ -No Drug Therapy requiring intensive monitoring for toxicity (Heparin, Nitro, Insulin, Cardizem)? @ -No Were any procedures done? @ -No Diagnosis/symptom? @ -Vertigo Acute, or Chronic, or Acute on Chronic? @ -[Acute Uncomplicated (without systemic symptoms) or Complicated (systemic symptoms)? @ -default Side effects of treatment? @ -No Exacerbation, Progression, or Severe Exacerbation? @ -No Poses a threat to life or bodily function? How? (Chest pain, USA, IA, pneumonia, PE, COPD, DKA, ARF, appy, cholecystitis, CVA, Diverticulitis, Homicidal, Suicidal, threat to staff... and all critical care pts) @ -No - Lab Data Result diagrams: 06/28/23 01:12 06/28/23 01:12 Lab Results 06/28/23 06/28/23 06/28/23 Range/Units 01:12 01:12 01:12 WBC 5.7 (3.8-10.6) k/uL RBC 4.76 (4.30-5.90) m/uL Hgb 15.3 (13.0-17.5) gm/dL Hct 44.4 (39.0-53.0) % MCV 93.2 (80.0-100.0) fL MCH 32.1 (25.0-35.0) pg MCHC 34.4 (31.0-37.0) g/dL RDW 12.2 (11.5-15.5) % Plt Count 195 (150-450) k/uL MPV 9.0 Neutrophils % 69 % Lymphocytes % 21 % Monocytes % 6 % Eosinophils % 2 % Basophils % 1 % Neutrophils # 3.9 (1.3-7.7) k/uL Lymphocytes # 1.2 (1.0-4.8) k/uL Monocytes # 0.4 (0-1.0) k/uL Eosinophils # 0.1 (0-0.7) k/uL Basophils # 0.0 (0-0.2) k/uL PT 10.9 (10.0-12.5) sec INR 1.0 (<1.2) APTT 24.5 (22.0-30.0) sec Sodium 141 (137-145) mmol/L Potassium 3.8 (3.5-5.1) mmol/L Chloride 112 H (98-107) mmol/L Carbon Dioxide 19 L (22-30) mmol/L Anion Gap 10 mmol/L BUN 13 (9-20) mg/dL Creatinine 0.78 (0.66-1.25) mg/dL Est GFR (CKD-EPI)AfAm >90 (>60 ml/min/1.73 sqM) Est GFR (CKD-EPI)NonAf >90 (>60 ml/min/1.73 sqM) Glucose 137 H (74-99) mg/dL Calcium 8.3 L (8.4-10.2) mg/dL Total Bilirubin 0.6 (0.2-1.3) mg/dL AST 26 (17-59) U/L ALT 24 (4-49) U/L Alkaline Phosphatase 109 (38-126) U/L Troponin I (0.000-0.034) ng/mL Total Protein 6.1 L (6.3-8.2) g/dL Albumin 3.5 (3.5-5.0) g/dL 06/28/23 Range/Units 01:12 WBC (3.8-10.6) k/uL RBC (4.30-5.90) m/uL Hgb (13.0-17.5) gm/dL Hct (39.0-53.0) % MCV (80.0-100.0) fL MCH (25.0-35.0) pg MCHC (31.0-37.0) g/dL RDW (11.5-15.5) % Plt Count (150-450) k/uL MPV Neutrophils % % Lymphocytes % % Monocytes % % Eosinophils % % Basophils % % Neutrophils # (1.3-7.7) k/uL Lymphocytes # (1.0-4.8) k/uL Monocytes # (0-1.0) k/uL Eosinophils # (0-0.7) k/uL Basophils # (0-0.2) k/uL PT (10.0-12.5) sec INR (<1.2) APTT (22.0-30.0) sec Sodium (137-145) mmol/L Potassium (3.5-5.1) mmol/L Chloride (98-107) mmol/L Carbon Dioxide (22-30) mmol/L Anion Gap mmol/L BUN (9-20) mg/dL Creatinine (0.66-1.25) mg/dL Est GFR (CKD-EPI)AfAm (>60 ml/min/1.73 sqM) Est GFR (CKD-EPI)NonAf (>60 ml/min/1.73 sqM) Glucose (74-99) mg/dL Calcium (8.4-10.2) mg/dL Total Bilirubin (0.2-1.3) mg/dL AST (17-59) U/L ALT (4-49) U/L Alkaline Phosphatase (38-126) U/L Troponin I <0.012 (0.000-0.034) ng/mL Total Protein (6.3-8.2) g/dL Albumin (3.5-5.0) g/dL Disposition Clinical Impression: Vertigo Disposition: HOME SELF-CARE Condition: Good Instructions (If sedation given, give patient instructions): Dizziness (ED), Vertigo (ED) Prescriptions: Meclizine [Antivert] 25 mg PO TID PRN #30 tab PRN Reason: Vertigo Is patient prescribed a controlled substance at d/c from ED?: No Referrals: Jair Hoyt DO [Primary Care Provider] - 1-2 days Time of Disposition: 04:19
[2023-06-28 01:30] LABS: Basophils % (A) 1 %; Eosinophils # (A) 0.1 k/uL (0-0.7); Eosinophils % (A) 2 %; HCT 44.4 % (39.0-53.0); HGB 15.3 gm/dL (13.0-17.5); Lymphocytes # (A) 1.2 k/uL (1.0-4.8); Lymphocytes % (A) 21 %; MCH 32.1 pg (25.0-35.0); MCHC 34.4 g/dL (31.0-37.0); MCV 93.2 fL (80.0-100.0); Monocytes # (A) 0.4 k/uL (0-1.0); Monocytes % (A) 6 %; Neutrophils # (A) 3.9 k/uL (1.3-7.7); Neutrophils % (A) 69 %; Platelet Count 195 k/uL (150-450); RBC 4.76 m/uL (4.30-5.90); RDW 12.2 % (11.5-15.5); WBC 5.7 k/uL (3.8-10.6)
--- NOTE | 2023-06-28 01:56 | CT ---
EXAM: CT Head Without Intravenous Contrast CLINICAL HISTORY: ITS.REASON CT Reason: ASHTON/Dizzy TECHNIQUE: Axial computed tomography images of the head/brain without intravenous contrast. CTDI is 49.2 mGy and DLP is 1167.4 mGy-cm. This CT exam was performed using one or more of the following dose reduction techniques: automated exposure control, adjustment of the mA and/or kV according to patient size, and/or use of iterative reconstruction technique. COMPARISON: No relevant prior studies available. FINDINGS: Brain: No hemorrhage or mass effect. Ventricles: No hydrocephalus. Bones/joints: Unremarkable. Soft tissues: Unremarkable. Sinuses: No air fluid level. Mastoid air cells: Severe right and minimal left mastoid effusion. IMPRESSION: No acute hemorrhage, hydrocephalus, or mass effect. Severe right and minimal left mastoid effusion.
[2023-06-28 01:57] VITALS: RESP 18; TEMP 97.8
[2023-06-28 02:42] LABS: Partial Thromboplastin Time 24.5 sec (22.0-30.0); Prothrombin Time 10.9 sec (10.0-12.5)
[2023-06-28 03:16] LABS: ALT 24 U/L (4-49); AST 26 U/L (17-59); African American GFR (CKD) >90 (>60 ml/min/1.73 sqM); Albumin 3.5 g/dL (3.5-5.0); Alkaline Phosphatase 109 U/L (38-126); Anion Gap 10 mmol/L; Blood Urea Nitrogen 13 mg/dL (9-20); Calcium 8.3 mg/dL (8.4-10.2); Carbon Dioxide 19 mmol/L (22-30); Chloride 112 mmol/L (98-107); Glucose 137 mg/dL (74-99); Non-African American GFR(CKD) >90 (>60 ml/min/1.73 sqM); Potassium 3.8 mmol/L (3.5-5.1); Sodium 141 mmol/L (137-145); Total Bilirubin 0.6 mg/dL (0.2-1.3); Total Protein 6.1 g/dL (6.3-8.2)
[2023-06-28 05:04] VITALS: BP 138/85; PULSE 69
== END 2023-06-28 07:00 | disposition home or self-care (01) ==
LOC: EC 00:57
DX: R42 Dizziness and giddiness (principal); R00.1 Bradycardia, unspecified; I10 Essential (primary) hypertension; E78.5 Hyperlipidemia, unspecified; F17.200 Nicotine dependence, unspecified, uncomplicated; Z88.6 Allergy status to analgesic agent; Z79.899 Other long term (current) drug therapy
CPT/HCPCS: 36415; 70450; 80053; 84484; 85025; 85610; 85730; 93005; 96360; 99285

== ENCOUNTER 2023-09-14 11:40 | Day surgery (SDC) | payer BC, MEDICARE ==
[2023-09-12 15:23] VITALS: BMI 32.3
[2023-09-14 12:53] VITALS: TEMP 97.3
[2023-09-14] MEDS: LACTATED RINGERS 1,000 ML IV SCH (12:59)
[2023-09-14] MEDS ORDERED: PROPOFOL 10 MG/ML 20 ML VIAL IV ONE (13:48)
--- NOTE | 2023-09-14 14:02 | P.PCN ---
Date of Procedure: 09/14/23 Procedure(s) Performed: BRIEF HISTORY: Patient is a 63-year-old pleasant white male scheduled for an elective colonoscopy as a part of screening for colon cancer. PROCEDURE PERFORMED: Colonoscopy with biopsy. PREOPERATIVE DIAGNOSIS: Screening for colon cancer. IV sedation per Anesthesia. PROCEDURE: After informed consent was obtained, the patient, was brought into the endoscopy unit. IV sedation was administered by Anesthesia under continuous monitoring. Digital rectal examination was normal. Initially the Olympus CF-160 flexible video colonoscope was then inserted in the rectum, gradually advanced into the cecum without any difficulty. Careful examination was performed as the scope was gradually being withdrawn. Ileocecal valve and the appendiceal orifice were visualized and appeared normal. Prep was excellent. Mucosa of the cecum, ascending colon, appeared normal. In the transverse colon there was a 5 limited polyp that was removed by cold biopsy. Scattered left sided diverticulosis seen. transverse colon, descending colon, sigmoid colon, and rectum appeared normal. Retroflexion was performed in the rectum and no lesions were seen. The patient tolerated the procedure well. IMPRESSION: 5 mm transverse colon polyp status post removal by cold biopsy Scattered sigmoid diverticulosis. RECOMMENDATIONS: Findings of this examination were discussed with the patient as well as his family. He was advised to follow with the biopsy results and if the biopsy results adenoma he can have a repeat colonoscopy in 5 years..
[2023-09-14 14:44] VITALS: BP 128/77; PULSE 66
[2023-09-14 14:45] VITALS: RESP 20
== END 2023-09-14 14:56 | disposition home or self-care (01) ==
LOC: ORWHC2ENDO 11:40
PROVIDERS: ATTEND Internal Medicine Gastroenterology
DX: Z12.11 Encounter for screening for malignant neoplasm of colon (principal); K63.5 Polyp of colon; K57.30 Diverticulosis of large intestine without perforation or abscess without bleeding; E78.5 Hyperlipidemia, unspecified; Z85.46 Personal history of malignant neoplasm of prostate; Z98.890 Other specified postprocedural states; Z79.899 Other long term (current) drug therapy; Z86.2 Personal history of diseases of the blood and blood-forming organs and certain disorders involving the immune mechanism
CPT/HCPCS: 45380; 88305; J2704